=== PATIENT | female | born 1950 ===

== ENCOUNTER 2020-04-29 14:19 | Outpatient (CLI) | payer MEDICARE, MEDICAID ==
[2020-04-29 21:02] LABS: FREE T4 (FREE THYROXINE) 4.49 ng/dL (0.58-1.64)
== END 2020-04-29 14:20 | disposition home or self-care (01) ==
LOC: LAB.S 14:19
PROVIDERS: ATTEND Family Medicine Adult Medicine
DX: E05.00 Thyrotoxicosis with diffuse goiter without thyrotoxic crisis or storm (principal); E07.9 Disorder of thyroid, unspecified
CPT/HCPCS: 36415; 84439; 84443

== ENCOUNTER 2020-05-27 11:04 | Outpatient (CLI) | payer MEDICARE, MEDICAID ==
[2020-05-27 15:55] LABS: THYROID STIMULATING HORMONE 0.01 uIU/mL (0.34-5.60)
[2020-05-27 17:00] LABS: FREE T4 (FREE THYROXINE) 3.6 ng/dL (0.58-1.64)
== END 2020-05-27 11:05 | disposition home or self-care (01) ==
LOC: LAB.S 11:04
PROVIDERS: ATTEND Family Medicine Adult Medicine
DX: E05.00 Thyrotoxicosis with diffuse goiter without thyrotoxic crisis or storm (principal)
CPT/HCPCS: 36415; 84439; 84443